=== PATIENT | male | born 1945 | race Hispanic/Latino ===

== ENCOUNTER 2017-10-28 11:55 | Outpatient (CLI) | payer MEDICARE, OTHER ==
--- NOTE | 2017-10-28 15:12 | RAD ---
RIGHT FEMUR FOUR VIEWS: HISTORY: Injury to right leg from falling. FINDINGS: Mild degenerative change at the hip. Mild degenerative change at the knee. No fracture or acute oss eous abnormality identified. POS: [facility]
== END 2017-10-28 11:56 | disposition home or self-care (01) ==
LOC: NAV RAD 11:55
PROVIDERS: ATTEND Internal Medicine
DX: S70.11XA Contusion of right thigh, initial encounter (principal); M16.11 Unilateral primary osteoarthritis, right hip; M17.11 Unilateral primary osteoarthritis, right knee